=== PATIENT | female | born 1985 | race Caucasian/White ===

== ENCOUNTER → 2021-09-21 08:51 | Outpatient (CLI) | payer SELFPAY ==
--- NOTE | 2021-09-21 09:15 | MRI_ITS ---
EXAM: MR PELVIS WITHOUT AND WITH INTRAVENOUS CONTRAST : 1985 CLINICAL INDICATION: Abn PET/CT- Hx of Breast CA TECHNIQUE: Multiplanar and multisequence MR images of the pelvis without and with intravenous contrast. This report was created using [employer] technology. CONTRAST: IV 13ML DOTAREM COMPARISON: None. FINDINGS: APPENDIX: No evidence of acute appendicitis. INTRAPERITONEAL SPACE: There is a small amount of physiologic free pelvic fluid present. BLADDER: Unremarkable. REPRODUCTIVE: Uterus measures 7.1 cm in length. Endometrial thickness is 7 mm. Endocervical canal appears open. No discrete uterine mass. Ovaries are normal size containing multiple follicles on the left and dominant 14 mm follicle on the right. BONES/JOINTS: Unremarkable. No suspicious lytic or blastic abnormality. SOFT TISSUES: Unremarkable. No pelvic wall hernia. VASCULATURE: Prominent parametrial vessels noted raising the possibility of pelvic venous insufficiency. LYMPH NODES: Unremarkable. No enlarged lymph nodes. MRI/Pelvis W/WO Contrast IMPRESSION: 1. No evidence of pelvic mass. 2. Question pelvic venous insufficiency. at 1100 Reported and signed by: Irving Lopez MD Electronically Signed: Irving Lopez MD at 10:59 EDT ,
== END ==
DX: R93.5 Abnormal findings on diagnostic imaging of other abdominal regions, including retroperitoneum (principal)
CPT/HCPCS: 72197; A9575